=== PATIENT | male | born 1960 | race Caucasian/White ===

== ENCOUNTER → 2019-03-19 | Outpatient (CLI) | payer OTHER ==
[2019-03-20 01:42] LABS: T4, Free (Free Thyroxine) 1.1 ng/dL (0.80-1.80)
== END | disposition home or self-care (01) ==
LOC: LABWHC1 16:02
PROVIDERS: ATTEND Radiology Radiation Oncology
DX: C61 Malignant neoplasm of prostate (principal); R97.21 Rising PSA following treatment for malignant neoplasm of prostate; F17.210 Nicotine dependence, cigarettes, uncomplicated; Z92.3 Personal history of irradiation
CPT/HCPCS: 36415; 84153; 84439; 84443; 84481

== ENCOUNTER 2021-10-19 15:46 | Observation (INO) | payer OTHER ==
[2021-10-19 16:18] LABS: Hyaline Casts,Urine 56 /lpf (0-2); RBC,Urine >182 /hpf (0-5); WBC,Urine >182 /hpf (0-5)
[2021-10-19 16:20] LABS: Appearance,Urine Bloody (Clear); Color,Urine Dark Red
[2021-10-19 18:12] LABS: Basophils # (A) 0.1 k/uL (0-0.2); Basophils % (A) 1 %; Eosinophils # (A) 0.3 k/uL (0-0.7); Eosinophils % (A) 5 %; HGB 13.4 gm/dL (13.0-17.5); Lymphocytes # (A) 1.4 k/uL (1.0-4.8); Lymphocytes % (A) 23 %; MCH 38.9 pg (25.0-35.0); MCHC 32.7 g/dL (31.0-37.0); MCV 119.1 fL (80.0-100.0); Macrocytosis Marked; Mean Platelet Volume 8.2; Monocytes # (A) 0.3 k/uL (0-1.0); Monocytes % (A) 5 %; Neutrophils # (A) 3.9 k/uL (1.3-7.7); Neutrophils % (A) 65 %; Platelet Count 247 k/uL (150-450); RBC 3.44 m/uL (4.30-5.90); RDW 13.9 % (11.5-15.5)
[2021-10-19 18:19] LABS: Partial Thromboplastin Time 24.2 sec (22.0-30.0); Prothrombin Time 10.4 sec (9.0-12.0)
--- NOTE | 2021-10-19 18:20 | ED ---
General Adult HPI - General Chief complaint: Urogenital Stated complaint: Irregular labs-Sent by Time Seen by Provider: 10/19/21 17:24 Source: patient Mode of arrival: wheelchair Limitations: no limitations - History of Present Illness Initial comments: Patient is a 61-year-old male presenting with chief complaint of hematuria. Patient states that for the last 2 days he has been urinating pat red blood and experiencing a burning sensation with urination. Patient has history of prostate cancer states his prostate was removed several years ago. He denies any abdominal pain. He admits to lower back pain, which is worsening. Denies any history of kidney stones. No fever or chills. No chest pain or shortness of breath or palpitations. No nausea, vomiting, diarrhea, hematochezia, melena. - Related Data Home Medications Medication Instructions Recorded Confirmed Clopidogrel [Plavix] 75 mg PO DAILY 01/16/16 10/19/21 Famotidine 20 mg PO BID 05/24/16 10/19/21 Aspirin EC [Ecotrin Low Dose] 81 mg PO DAILY 10/19/21 10/19/21 Atorvastatin Calcium [Lipitor] 40 mg PO DAILY 10/19/21 10/19/21 Fluticasone Nasal [place] [Flonase 1 spray EA NOSTRIL BID 10/19/21 10/19/21 Nasal [place]] Furosemide [Lasix] 20 mg PO DAILY 10/19/21 10/19/21 Gabapentin [Neurontin] 600 mg PO TID 10/19/21 10/19/21 HYDROcodone/APAP 7.5-325MG [[place] 1 tab PO QID 10/19/21 10/19/21 7.5-325] Metoprolol Succinate [Toprol XL] 100 mg PO DAILY 10/19/21 10/19/21 Potassium Chloride [Potassium 10 meq PO DAILY 10/19/21 10/19/21 Chloride ER] Triamcinolone 0.1% Cream [Kenalog 1 applicatio TOPICAL BID PRN 10/19/21 10/19/21 0.1% Cream] cilostazoL [Pletal] 100 mg PO BID 10/19/21 10/19/21 glipiZIDE XL [Glucotrol Xl] 5 mg PO DAILY 10/19/21 10/19/21 Allergies Allergy/AdvReac Type Severity Reaction Status Date / Time No Known Allergies Allergy Verified 10/19/21 15:59 Review of Systems ROS Statement: Those systems with pertinent positive or pertinent negative responses have been documented in the HPI. ROS Other: All systems not noted in ROS Statement are negative. Past Medical History Past Medical History: Coronary Artery Disease (CAD), Myocardial Infarction ([place]), Seizure Disorder History of Any Multi-Drug Resistant Organisms: None Reported Past Surgical History: Heart Catheterization With Stent, Orthopedic Surgery Additional Past Surgical History / Comment(s): Right hip surgery, stents in legs Past Psychological History: Depression Smoking Status: Current every day smoker Past Alcohol Use History: Daily Past Drug Use History: None Reported General Exam Limitations: no limitations General appearance: alert, in no apparent distress Head exam: Present: atraumatic, normocephalic, normal inspection Eye exam: Present: normal appearance, EOMI. Absent: scleral icterus Neck exam: Present: normal inspection Respiratory exam: Present: normal lung sounds bilaterally. Absent: respiratory distress, wheezes, rales, rhonchi, stridor Cardiovascular Exam: Present: regular rate, normal rhythm, normal heart sounds. Absent: systolic murmur, diastolic murmur, rubs, gallop, clicks GI/Abdominal exam: Present: soft, normal bowel sounds. Absent: distended, ten derness, guarding, rebound, rigid Back exam: Present: normal inspection. Absent: CVA tenderness (R), CVA tenderness (L) Neurological exam: Present: alert, oriented X3, CN II-XII intact Psychiatric exam: Present: normal affect, normal mood Skin exam: Present: warm, dry, intact, normal color. Absent: rash Course Vital Signs 10/19/21 10/19/21 10/19/21 16:00 18:04 19:10 Temperature 98.8 F Pulse Rate 99 94 83 Respiratory 18 18 20 Rate Blood Pressure 98/66 114/72 99/62 O2 Sat by Pulse 94 L 94 L 95 Oximetry 10/19/21 20:18 Temperature Pulse Rate 78 Respiratory 20 Rate Blood Pressure 134/98 O2 Sat by Pulse 98 Oximetry Medical Decision Making - Medical Decision Making Patient is a 61-year-old male presenting with chief complaint of hematuria. Symptoms have been present for the last 2 days. Patient admits to low back pain. Denies any abdominal pain, nausea, vomiting. On exam normal bowel sounds in all 4 quadrants, no abdominal tenderness or CVA tenderness. Lab work shows no leukocytosis. Urine is positive for >182 urine RBC and WBC and Hyaline casts. CT of the abdomen and pelvis without contrast shows a partially obstructing left distal ureter 6 mm calculus. Additional bilateral nonobstructing renal calculi. Minimal hydroureteronephrosis. During his stay patient states that his pain has been increasing. Patient is given IV Toradol, 1 dose Flomax, IV fluids. I spoke with Dr. Brower who agreed to admit the patient for symptomatic control. I obtained a KUB x-ray per his request. Patient was given one dose of Rocephin in the event that his elevated urine WBCs are due to a UTI, urine is sent for culture and proper urine chemistry cannot be performed due to the high blood content of the urine. I informed the patient of the findings in this plan, he conveyed verbal understanding and agreed to the plan. - Lab Data Result diagrams: 10/19/21 17:57 10/19/21 17:57 Lab Results 10/19/21 10/19/21 10/19/21 Range/Units 16:04 17:57 17:57 WBC 6.0 (3.8-10.6) k/uL RBC 3.44 L (4.30-5.90) m/uL Hgb 13.4 (13.0-17.5) gm/dL Hct 41.0 (39.0-53.0) % MCV 119.1 H (80.0-100.0) fL MCH 38.9 H (25.0-35.0) pg MCHC 32.7 (31.0-37.0) g/dL RDW 13.9 (11.5-15.5) % Plt Count 247 (150-450) k/uL MPV 8.2 Neutrophils % 65 % Lymphocytes % 23 % Monocytes % 5 % Eosinophils % 5 % Basophils % 1 % Neutrophils # 3.9 (1.3-7.7) k/uL Lymphocytes # 1.4 (1.0-4.8) k/uL Monocytes # 0.3 (0-1.0) k/uL Eosinophils # 0.3 (0-0.7) k/uL Basophils # 0.1 (0-0.2) k/uL Manual Slide Review Performed Polychromasia Present Macrocytosis Marked A Spherocytes Present PT (9.0-12.0) sec INR (<1.2) APTT (22.0-30.0) sec Sodium 140 (137-145) mmol/L Potassium 4.0 (3.5-5.1) mmol/L Chloride 105 (98-107) mmol/L Carbon Dioxide 28 (22-30) mmol/L Anion Gap 7 mmol/L BUN 11 (9-20) mg/dL Creatinine 1.00 (0.66-1.25) mg/dL Est GFR (CKD-EPI)AfAm >90 (>60 ml/min/1.73 sqM) Est GFR (CKD-EPI)NonAf 82 (>60 ml/min/1.73 sqM) Glucose 109 H (74-99) mg/dL Plasma Lactic Acid Joselito (0.7-2.0) mmol/L Calcium 9.0 (8.4-10.2) mg/dL Total Bilirubin 0.6 (0.2-1.3) mg/dL AST 33 (17-59) U/L ALT 28 (4-49) U/L Alkaline Phosphatase 67 (38-126) U/L Total Protein 7.1 (6.3-8.2) g/dL Albumin 3.9 (3.5-5.0) g/dL Amylase 52 (30-110) U/L Lipase 88 (23-300) U/L Urine Color Dark Red Urine Appearance Bloody (Clear) Urine RBC >182 H (0-5) /hpf Urine WBC >182 H (0-5) /hpf Hyaline Casts 56 H (0-2) /lpf 10/19/21 10/19/21 Range/Units 17:57 17:57 WBC (3.8-10.6) k/uL RBC (4.30-5.90) m/uL Hgb (13.0-17.5) gm/dL Hct (39.0-53.0) % MCV (80.0-100.0) fL MCH (25.0-35.0) pg MCHC (31.0-37.0) g/dL RDW (11.5-15.5) % Plt Count (150-450) k/uL MPV Neutrophils % % Lymphocytes % % Monocytes % % Eosinophils % % Basophils % % Neutrophils # (1.3-7.7) k/uL Lymphocytes # (1.0-4.8) k/uL Monocytes # (0-1.0) k/uL Eosinophils # (0-0.7) k/uL Basophils # (0-0.2) k/uL Manual Slide Review Polychromasia Macrocytosis Spherocytes PT 10.4 (9.0-12.0) sec INR 1.0 (<1.2) APTT 24.2 (22.0-30.0) sec Sodium (137-145) mmol/L Potassium (3.5-5.1) mmol/L Chloride (98-107) mmol/L Carbon Dioxide (22-30) mmol/L Anion Gap mmol/L BUN (9-20) mg/dL Creatinine (0.66-1.25) mg/dL Est GFR (CKD-EPI)AfAm (>60 ml/min/1.73 sqM) Est GFR (CKD-EPI)NonAf (>60 ml/min/1.73 sqM) Glucose (74-99) mg/dL Plasma Lactic Acid Joselito 1.0 (0.7-2.0) mmol/L Calcium (8.4-10.2) mg/dL Total Bilirubin (0.2-1.3) mg/dL AST (17-59) U/L ALT (4-49) U/L Alkaline Phosphatase (38-126) U/L Total Protein (6.3-8.2) g/dL Albumin (3.5-5.0) g/dL Amylase (30-110) U/L Lipase (23-300) U/L Urine Color Urine Appearance (Clear) Urine RBC (0-5) /hpf Urine WBC (0-5) /hpf Hyaline Casts (0-2) /lpf Disposition Clinical Impression: Nephrolithiasis Disposition: ADMITTED IP TO THIS [facility] Condition: Good Time of Disposition: 20:03 Decision to Admit Reason: Admit from EC Decision Date: 10/19/21 Decision Time: 20:03
[2021-10-19 18:34] LABS: Polychromasia Present; Spherocytes Present
[2021-10-19 18:45] LABS: ALT 28 U/L (4-49); AST 33 U/L (17-59); African American GFR (CKD) >90 (>60 ml/min/1.73 sqM); Albumin 3.9 g/dL (3.5-5.0); Alkaline Phosphatase 67 U/L (38-126); Amylase 52 U/L (30-110); Anion Gap 7 mmol/L; Blood Urea Nitrogen 11 mg/dL (9-20); Carbon Dioxide 28 mmol/L (22-30); Chloride 105 mmol/L (98-107); Glucose 109 mg/dL (74-99); Lipase 88 U/L (23-300); Non-African American GFR(CKD) 82 (>60 ml/min/1.73 sqM); Sodium 140 mmol/L (137-145); Total Bilirubin 0.6 mg/dL (0.2-1.3); Total Protein 7.1 g/dL (6.3-8.2)
--- NOTE | 2021-10-19 19:19 | CT ---
EXAMINATION TYPE: CT abdomen pelvis wo con CT DLP: 1124.4 mGycm, Automated exposure control for dose reduction was used. DATE OF EXAM: 10/19/2021 6:43 PM COMPARISON: CT abdomen chest pelvis most recent from 05/24/2016. CLINICAL INDICATION:Male, 61 years old with history of Hematuria; Lower abdominal pain/hematuria TECHNIQUE: Standard CT of the abdomen and pelvis without IV or oral contrast. Lack of IV or oral co ntrast limits evaluation of solid and hollow organ viscera. Coronal and sagittal reformats were perfo rmed. FINDINGS: LOWER CHEST: Unremarkable ABDOMEN LIVER: Unremarkable GALLBLADDER AND BILE DUCTS: Unremarkable. PANCREAS: Unremarkable. SPLEEN: Unremarkable. ADRENAL GLANDS: Unremarkable. KIDNEYS AND URETERS: Partially obstructing left renal calculus at the distal left ureter measuring up to 6 mm with minimal hydroureteronephrosis. Additional calculi bilaterally which are nonobstructing measuring up to 10 mm on the right and 9mm on the left. No evidence of right hydronephrosis. PELVIS BLADDER: Unremarkable REPRODUCTIVE: Unremarkable. ABDOMEN & PELVIS STOMACH AND BOWEL: Stomach and duodenum are unremarkable. Scattered diverticula are noted throughout the colon. No evidence of bowel obstruction. PERITONEUM: No evidence of pneumoperitoneum or free fluid. VASCULATURE: No evidence of aortic aneurysm. Atherosclerosis of the arterial vasculature. Right commo n iliac artery stent in place. MUSCULOSKELETAL: No acute osseous abnormalities. Right hip arthroplasty with hardware intact. No evid ence of periprosthetic loosening or fracture. LYMPH NODES: No gross evidence for lymphadenopathy. SOFT TISSUE/ABDOMINAL WALL: Bilateral fat filled inguinal hernia. IMPRESSION: 1. Partially obstructing left distal ureter 6 mm calculus. Additional bilateral nonobstructing renal calculi. 2. Colonic diverticulosis. 3. Bilateral fat filled inguinal hernias.
[2021-10-19] MEDS ORDERED: TAMSULOSIN 0.4 MG CAP.ER.24H PO STA (19:28)
[2021-10-19] MEDS ORDERED: KETOROLAC 15 MG/ML 1 ML VIAL IVP STA (19:33)
[2021-10-19] MEDS ORDERED: SODIUM CHLORIDE 0.9% 1,000 ML IV ONE (19:38)
[2021-10-19] MEDS ORDERED: cefTRIAXone IN SWFI 1,000 MG/10 ML SYRINGE IVP STA (19:45)
[2021-10-19] MEDS ORDERED: NALOXONE 0.4 MG/ML 1 ML VIAL IV PRN (19:50)
--- NOTE | 2021-10-19 20:14 | XR ---
EXAMINATION TYPE: XR KUB DATE OF EXAM: 10/19/2021 8:07 PM INDICATION: Patient age:Male; 61 years old; Reason for study: nephrolithiasis, requested by urology;. COMPARISON: Same date CT abdomen pelvis. TECHNIQUE: One radiographic view of the abdomen was obtained. FINDINGS: Multiple bilateral renal calculi which are better characterized on CT abdomen pelvis from t he same day. The bowel gas pattern is nonspecific without dilated loops of small or large bowel.. Th e osseous structures are intact. Multiple calcifications project over the kidneys. Fecal material an d gas are demonstrated throughout the colon and rectum. IMPRESSION: Bilateral renal calculi please see dedicated CT on the same day for additional findings regarding par tially obstructing left distal ureter calculus.
[2021-10-20] MEDS: KETOROLAC 15 MG/ML 1 ML VIAL IVP PRN ×2 (01:37→07:09)
[2021-10-20] MEDS: SODIUM CHLORIDE 0.9% 1,000 ML IV SCH ×2 (02:15→11:19)
--- NOTE | 2021-10-20 08:52 | P.GSHP ---
History of Present Illness H&P Date: 10/20/21 Chief Complaint: Hematuria, low back pain The patient is a 61-year-old white male with no prior history of urolithiasis. He now presents with a 2 day history of gross hematuria associated with low back pain. CT scan has shown a 6 mm left distal ureteral calculus resulting in mild left hydronephrosis. He is also noted to have multiple bilateral renal calculi, 10-20 in each kidney, measuring up to 1 cm. - Constitutional Constitutional: Denies chills, Denies fever - Gastrointestinal Gastrointestinal: Denies nausea, Denies vomiting - Genitourinary (Male) Genitourinary: Reports dysuria, Reports hematuria, Reports kidney stones Past Medical History Past Medical History: Coronary Artery Disease (CAD), Myocardial Infarction ([place]), Seizure Disorder Last Myocardial Infarction Date:: unknown History of Any Multi-Drug Resistant Organisms: None Reported Past Surgical History: Heart Catheterization With Stent, Orthopedic Surgery Additional Past Surgical History / Comment(s): Right hip surgery, stents in legs Past Anesthesia/Blood Transfusion Reactions: No Reported Reaction Date of Last Stent Placement:: unknown Past Psychological History: Depression Smoking Status: Current every day smoker Past Alcohol Use History: Daily Past Drug Use History: None Reported Medications and Allergies Home Medications Medication Instructions Recorded Confirmed Type Clopidogrel [Plavix] 75 mg PO DAILY 01/16/16 10/19/21 History Famotidine 20 mg PO BID 05/24/16 10/19/21 History Aspirin EC [Ecotrin Low Dose] 81 mg PO DAILY 10/19/21 10/19/21 History Atorvastatin Calcium [Lipitor] 40 mg PO DAILY 10/19/21 10/19/21 History Fluticasone Nasal [place] [Flonase 1 spray EA NOSTRIL BID 10/19/21 10/19/21 History Nasal [place]] Furosemide [Lasix] 20 mg PO DAILY 10/19/21 10/19/21 History Gabapentin [Neurontin] 600 mg PO TID 10/19/21 10/19/21 History HYDROcodone/APAP 7.5-325MG [[place] 1 tab PO QID 10/19/21 10/19/21 History 7.5-325] Metoprolol Succinate [Toprol XL] 100 mg PO DAILY 10/19/21 10/19/21 History Potassium Chloride [Potassium 10 meq PO DAILY 10/19/21 10/19/21 History Chloride ER] Triamcinolone 0.1% Cream [Kenalog 1 applicatio TOPICAL BID PRN 10/19/21 10/19/21 History 0.1% Cream] cilostazoL [Pletal] 100 mg PO BID 10/19/21 10/19/21 History glipiZIDE XL [Glucotrol Xl] 5 mg PO DAILY 10/19/21 10/19/21 History Allergies Allergy/AdvReac Type Severity Reaction Status Date / Time No Known Allergies Allergy Verified 10/19/21 15:59 Surgical - Exam Vital Signs Temp Pulse Resp BP Pulse Ox 98.8 F 99 18 98/66 94 L 10/19/21 16:00 10/19/21 16:00 10/19/21 16:00 10/19/21 16:00 10/19/21 16:00 - General well developed, well nourished, no distress - Neck no masses, trachea midline - Respiratory normal respiratory effort - Abdomen Soft, non-distended, no mass or hernia. Mild left lower quadrant tenderness, no guarding or rebound. - Genitourinary normal penis with no external lesions, testicles non-tender - Psychiatric oriented to time, oriented to person, oriented to place, speech is normal, memory intact Results - Labs 10/19/21 17:57 10/19/21 17:57 Abnormal Lab Results - Last 24 Hours (Table) 10/19/21 10/19/21 10/19/21 Range/Units 16:04 17:57 17:57 RBC 3.44 L (4.30-5.90) m/uL MCV 119.1 H (80.0-100.0) fL MCH 38.9 H (25.0-35.0) pg Macrocytosis Marked A Glucose 109 H (74-99) mg/dL Urine RBC >182 H (0-5) /hpf Urine WBC >182 H (0-5) /hpf Hyaline Casts 56 H (0-2) /lpf Microbiology - Last 24 Hours (Table) 10/19/21 16:04 Urine Culture - Preliminary Urine,Voided Diabetes panel 10/19/21 Range/Units 17:57 Sodium 140 (137-145) mmol/L Potassium 4.0 (3.5-5.1) mmol/L Chloride 105 (98-107) mmol/L Carbon Dioxide 28 (22-30) mmol/L BUN 11 (9-20) mg/dL Creatinine 1.00 (0.66-1.25) mg/dL Glucose 109 H (74-99) mg/dL Calcium 9.0 (8.4-10.2) mg/dL AST 33 (17-59) U/L ALT 28 (4-49) U/L Alkaline Phosphatase 67 (38-126) U/L Total Protein 7.1 (6.3-8.2) g/dL Albumin 3.9 (3.5-5.0) g/dL Calcium panel 10/19/21 Range/Units 17:57 Calcium 9.0 (8.4-10.2) mg/dL Albumin 3.9 (3.5-5.0) g/dL Pituitary panel 10/19/21 Range/Units 17:57 Sodium 140 (137-145) mmol/L Potassium 4.0 (3.5-5.1) mmol/L Chloride 105 (98-107) mmol/L Carbon Dioxide 28 (22-30) mmol/L BUN 11 (9-20) mg/dL Creatinine 1.00 (0.66-1.25) mg/dL Glucose 109 H (74-99) mg/dL Calcium 9.0 (8.4-10.2) mg/dL Adrenal panel 10/19/21 Range/Units 17:57 Sodium 140 (137-145) mmol/L Potassium 4.0 (3.5-5.1) mmol/L Chloride 105 (98-107) mmol/L Carbon Dioxide 28 (22-30) mmol/L BUN 11 (9-20) mg/dL Creatinine 1.00 (0.66-1.25) mg/dL Glucose 109 H (74-99) mg/dL Calcium 9.0 (8.4-10.2) mg/dL Total Bilirubin 0.6 (0.2-1.3) mg/dL AST 33 (17-59) U/L ALT 28 (4-49) U/L Alkaline Phosphatase 67 (38-126) U/L Total Protein 7.1 (6.3-8.2) g/dL Albumin 3.9 (3.5-5.0) g/dL - Imaging CT scan - abdomen: report reviewed, image reviewed Assessment and Plan (1) Calculus of kidney Current Visit: Yes Status: Acute Code(s): N20.0 - CALCULUS OF KIDNEY SNOMED Code(s): 74819499 (2) Calculus of ureter Current Visit: Yes Status: Acute Code(s): N20.1 - CALCULUS OF URETER SNOMED Code(s): 68614671 Plan: I had a lengthy discussion with the patient regarding his multiple kidney stones. He reports severe pain and desires surgical relief. We discussed ureteroscopic removal of his left distal ureteral calculus. He also desires removal of his left renal calculi. It has thus been decided that he will undergo cystoscopy with left ureteral stent insertion later today to relieve his ureteral obstruction. Arrangements will then be made for him to undergo cystoscopy, left ureteral stent removal, left ureteroscopy with Holmium laser lithotripsy and stone basketing to remove his left ureteral calculus and as many of the left renal calculi as possible in 2-4 weeks. He is aware that his hematuria may persist until this is completed. He is aware of potential risks, which include anesthesia, bleeding, infection, and ureteral injury. Time with Patient: Greater than 30
[2021-10-20] MEDS: HYDROmorphone 0.5 MG/0.5 ML SYRINGE IVP PRN ×3 (09:34→13:17)
[2021-10-20] MEDS ORDERED: METOPROLOL SUCCINATE (ER) 100 MG TAB.ER.24H PO SCH (09:45)
[2021-10-20] MEDS ORDERED: FAMOTIDINE 20 MG TAB PO SCH (09:45)
[2021-10-20] MEDS ORDERED: ATORVASTATIN 40 MG TAB PO SCH (09:45)
[2021-10-20] MEDS ORDERED: NICOTINE 21MG/24HR PATCH TRANSDERM STA (10:30)
[2021-10-20] MEDS ORDERED: DEXTROSE 5%-0.9% NACL 1,000 ML IV SCH (11:15)
[2021-10-20] MEDS: GABAPENTIN 300 MG CAP PO SCH ×2 (11:18→18:21)
[2021-10-20 12:01] LABS: Glucose,Whole Blood 130 mg/dL (75-99)
[2021-10-20] MEDS: INSULIN ASPART (NovoLOG) 100 UNIT/ML VIAL SQ SCH ×2 (12:44→18:21)
--- NOTE | 2021-10-20 15:50 | P.CONS ---
History of Present Illness - Reason for Consult Consult date: 10/20/21 Medical management Requesting physician: Iván Brower - Chief Complaint Blood and urine - History of Present Illness This is a 61-year-old patient who follows with Dr. Clifton Melvin. Chronic stable medical conditions include CAD with stent in 2013, also doubt peripheral stent placed about 6 months ago. Other chronic stable medical conditions include seizure disorder, GERD, hypertension, hyperlipidemia, diabetes. Patient started noticing some blood in the urine about 2 days ago. Following day became much worse. Becoming more pat blood. He had some left lower juliana drant pain. Denies any fever or chills. No nausea vomiting. Computed tomography scan of the ER didn't show a left ureteral stone. Seen by Dr. Duron earlier today. Plan is to take out the stone/stent placement. I'll follow patient antiplatelet agent this morning. Review of systems: GEN.: Tired EYES: None HEENT: None NECK: None RESPIRATORY: None CARDIOVASCULAR: None GASTROINTESTINAL: None GENITOURINARY: As above MUSCULOSKELETAL: None LYMPHATICS: None HEMATOLOGICAL: None PSYCHIATRY: None NEUROLOGICAL: None Past medical history to include: CAD with stent in 2013, peripheral arterial disease with stent angioplasty 6 months ago, seizures, GERD, hypertension, hyperlipidemia, diabetes Social history: This is a girlfriend. Retired otr owner operator truck driver. Smokes half a pack a day for close to 23 years. No alcohol. Family history: Reviewed, noncontributory to presentation Physical examination: VITAL SIGNS: 98.2, 89, 18, 162/95, 96% room air GENERAL: BMI 29.9, declining bed, awake comfortable. EYES: Pupils equal. Conjunctiva normal. HEENT: External appearance of nose and ears normal, oral cavity grossly normal. NECK: JVD not raised; masses not palpable. HEART: First and second heart sounds are normal; no edema. LUNGS: Respiratory rate normal; clear to auscultation. ABDOMEN: Soft, nontender, liver spleen not palpable, no masses palpable. PSYCH: Alert and oriented x3; mood and affect normal. MUSCULOSKELETAL:No Clubbing/cyanosis;muscles-grossly intact NEUROLOGICAL: Cranial nerves grossly intact; no facial asymmetry, power and sensation grossly intact. LYMPHATICS: No lymph nodes palpable in the axilla and neck INVESTIGATIONS, reviewed in the clinical context: White count 6 hemoglobin 13.4 platelets onto 47 sodium 140 potassium 4 creatinine 1.0 UA positive for WBC RBC bloody dark red in color CT abdomen pelvis: Partially obstructing left distal ureter 6 mm calculus. Initial bilateral nonobstructing renal calculi. Colonic diverticulosis. Bilateral fat filled inguinal hernias. Assessment and plan: -Acute hematuria from left ureter stone [address] Duron later today will be extracting the stone. May need a stent. Hold off antiplatelet agents today. -CAD with a prior history of stent in 2013 Aspirin. Toprol-XL 100 mg daily -Essential hypertension Toprol-XL 100 mg a day -Hyperlipidemia Lipitor 40 mg a day -Diabetes mellitus type 2 on oral hypoglycemic Hold Glucotrol. Follow Accu-Cheks and sliding scale insulin. -GERD Pepcid 20 mg twice a day -Seizure disorder Neurontin 600 mg 3 times a day Resume all medications. Hold off antiplatelet agents still tomorrow. Follow Accu-Cheks and sliding scale. It was discussed with the patient. Questions answered. Medically stable to proceed with surgery. IV fluids. Thank you Dr. Brower Past Medical History Past Medical History: Coronary Artery Disease (CAD), Myocardial Infarction ([place]), Seizure Disorder Last Myocardial Infarction Date:: unknown History of Any Multi-Drug Resistant Organisms: None Reported Past Surgical History: Heart Catheterization With Stent, Orthopedic Surgery Additional Past Surgical History / Comment(s): Right hip surgery, stents in legs Past Anesthesia/Blood Transfusion Reactions: No Reported Reaction Date of Last Stent Placement:: unknown Past Psychological History: Depression Smoking Status: Current every day smoker Past Alcohol Use History: Daily Past Drug Use History: None Reported Medications and Allergies Home Medications Medication Instructions Recorded Confirmed Type Clopidogrel [Plavix] 75 mg PO DAILY 01/16/16 10/19/21 History Famotidine 20 mg PO BID 05/24/16 10/19/21 History Aspirin EC [Ecotrin Low Dose] 81 mg PO DAILY 10/19/21 10/19/21 History Atorvastatin Calcium [Lipitor] 40 mg PO DAILY 10/19/21 10/19/21 History Fluticasone Nasal [place] [Flonase 1 spray EA NOSTRIL BID 10/19/21 10/19/21 History Nasal [place]] Furosemide [Lasix] 20 mg PO DAILY 10/19/21 10/19/21 History Gabapentin [Neurontin] 600 mg PO TID 10/19/21 10/19/21 History HYDROcodone/APAP 7.5-325MG [[place] 1 tab PO QID 10/19/21 10/19/21 History 7.5-325] Metoprolol Succinate [Toprol XL] 100 mg PO DAILY 10/19/21 10/19/21 History Potassium Chloride [Potassium 10 meq PO DAILY 10/19/21 10/19/21 History Chloride ER] Triamcinolone 0.1% Cream [Kenalog 1 applicatio TOPICAL BID PRN 10/19/21 10/19/21 History 0.1% Cream] cilostazoL [Pletal] 100 mg PO BID 10/19/21 10/19/21 History glipiZIDE XL [Glucotrol Xl] 5 mg PO DAILY 10/19/21 10/19/21 History Allergies Allergy/AdvReac Type Severity Reaction Status Date / Time No Known Allergies Allergy Verified 10/19/21 15:59 Physical Exam Vitals: Vital Signs Temp Pulse Pulse Resp BP BP Pulse Ox 10/20/21 07:00 98.2 F 89 18 162/95 96 10/20/21 02:39 98.2 F 82 18 180/77 93 L 10/19/21 20:18 78 20 134/98 98 10/19/21 19:10 83 20 99/62 95 10/19/21 18:04 94 18 114/72 94 L 10/19/21 16:00 98.8 F 99 18 98/66 94 L Intake and Output 10/19/21 10/20/21 10/20/21 22:59 06:59 14:59 Other: Voiding Method Toilet # Voids 0 Weight 111.584 kg 111.584 kg Results CBC & Chem 7: 10/19/21 17:57 10/19/21 17:57 Labs: Abnormal Lab Results - Last 24 Hours (Table) 10/19/21 10/19/21 10/19/21 Range/Units 16:04 17:57 17:57 RBC 3.44 L (4.30-5.90) m/uL MCV 119.1 H (80.0-100.0) fL MCH 38.9 H (25.0-35.0) pg Macrocytosis Marked A Glucose 109 H (74-99) mg/dL Urine RBC >182 H (0-5) /hpf Urine WBC >182 H (0-5) /hpf Hyaline Casts 56 H (0-2) /lpf Microbiology - Last 24 Hours (Table) 10/19/21 16:04 Urine Culture - Preliminary Urine,Voided
[2021-10-20 15:53] VITALS: BP 174/91; PULSE 71; RESP 16; TEMP 97.6
[2021-10-20 16:05] LABS: Glucose,Whole Blood 122 mg/dL (75-99)
[2021-10-20] MEDS ORDERED: IV FLUID CONTINUATION 1,000 ML IV ONE (16:05)
--- NOTE | 2021-10-20 17:22 | P.DS ---
Providers Date of admission: 10/20/21 12:05 Expected date of discharge: 10/20/21 Attending physician: Iván Brower Consults: 10/19/21 19:51 Consult Physician Urgent Consulting Provider: Guille Hampton Consult Reason/Comments: medicine consult Do you want consulting provider notified?: Yes Primary care physician: Clifton Melvin - Discharge Diagnosis(es) (1) Calculus of kidney Current Visit: Yes Status: Acute (2) Calculus of ureter Current Visit: Yes Status: Acute Hospital Course: The patient was admitted and treated with IV hydration and parenteral analgesics. Due to the severity of his pain, he elected to undergo left uret eral stent insertion. However, he passed the calculus prior to surgery, and his symptoms essentially resolved. He will thus be discharged home. However, he does wish to make arrangements to undergo ureteroscopic removal of his renal calculi. Pertinent Studies: CT Scan 10/19/2021 revealed minimal left hydronephrosis due to a 6 mm left distal ureteral calculus. Multiple bilateral renal calculi measuring up to 1 cm were also seen. Patient Condition at Discharge: Good Plan - Discharge Summary New Discharge Prescriptions: No Action Clopidogrel [Plavix] 75 mg PO DAILY Famotidine 20 mg PO BID cilostazoL [Pletal] 100 mg PO BID HYDROcodone/APAP 7.5-325MG [[place] 7.5-325] 1 tab PO QID Potassium Chloride [Potassium Chloride ER] 10 meq PO DAILY Gabapentin [Neurontin] 600 mg PO TID Atorvastatin Calcium [Lipitor] 40 mg PO DAILY glipiZIDE XL [Glucotrol Xl] 5 mg PO DAILY Metoprolol Succinate [Toprol XL] 100 mg PO DAILY Triamcinolone 0.1% Cream [Kenalog 0.1% Cream] 1 applicatio TOPICAL BID PRN PRN Reason: Itching Furosemide [Lasix] 20 mg PO DAILY Aspirin EC [Ecotrin Low Dose] 81 mg PO DAILY Fluticasone Nasal [place] [Flonase Nasal [place]] 1 spray EA NOSTRIL BID Discharge Medication List Clopidogrel [Plavix] 75 mg PO DAILY 01/16/16 [History] Famotidine 20 mg PO BID 05/24/16 [History] Aspirin EC [Ecotrin Low Dose] 81 mg PO DAILY 10/19/21 [History] Atorvastatin Calcium [Lipitor] 40 mg PO DAILY 10/19/21 [History] Fluticasone Nasal [place] [Flonase Nasal [place]] 1 spray EA NOSTRIL BID 10/19/21 [History] Furosemide [Lasix] 20 mg PO DAILY 10/19/21 [History] Gabapentin [Neurontin] 600 mg PO TID 10/19/21 [History] HYDROcodone/APAP 7.5-325MG [[place] 7.5-325] 1 tab PO QID 10/19/21 [History] Metoprolol Succinate [Toprol XL] 100 mg PO DAILY 10/19/21 [History] Potassium Chloride [Potassium Chloride ER] 10 meq PO DAILY 10/19/21 [History] Triamcinolone 0.1% Cream [Kenalog 0.1% Cream] 1 applicatio TOPICAL BID PRN 10/19/21 [History] cilostazoL [Pletal] 100 mg PO BID 10/19/21 [History] glipiZIDE XL [Glucotrol Xl] 5 mg PO DAILY 10/19/21 [History] Follow up Appointment(s)/Referral(s): Clifton Melvin MD [Primary Care Provider] - 1-2 days Activity/Diet/Wound Care/Special Instructions: Diet as tolerated. Activity as tolerated. Patient will be contacted by Dr. Brower' office to arrange follow-up. Discharge Disposition: HOME SELF-CARE
[2021-10-21] MEDS ORDERED: ASPIRIN 81 MG PO SCH (09:00)
[2021-10-21] MEDS ORDERED: CLOPIDOGREL 75 MG TAB PO SCH (09:00)
== END 2021-10-20 18:55 | disposition home or self-care (01) ==
LOC: EC 15:46 → 6NMEDSUR 21:52 → INTOOBSV 10-20 12:05 → OBSVTOIN 10-20 12:05 → UNDODISIN 10-20 18:55
PROVIDERS: ADMIT Urology; ATTEND Urology
DX: N13.2 Hydronephrosis with renal and ureteral calculous obstruction (principal); E11.9 Type 2 diabetes mellitus without complications; E78.5 Hyperlipidemia, unspecified; F17.210 Nicotine dependence, cigarettes, uncomplicated; F32.A Depression, unspecified; R31.9 Hematuria, unspecified; G40.909 Epilepsy, unspecified, not intractable, without status epilepticus; I10 Essential (primary) hypertension; I25.10 Atherosclerotic heart disease of native coronary artery without angina pectoris; E66.9 Obesity, unspecified; Z68.29 Body mass index [BMI] 29.0-29.9, adult; I25.2 Old myocardial infarction; K40.20 Bilateral inguinal hernia, without obstruction or gangrene, not specified as recurrent; K21.9 Gastro-esophageal reflux disease without esophagitis; K57.30 Diverticulosis of large intestine without perforation or abscess without bleeding; Z79.02 Long term (current) use of antithrombotics/antiplatelets; Z79.82 Long term (current) use of aspirin; Z79.84 Long term (current) use of oral hypoglycemic drugs; Z79.899 Other long term (current) drug therapy; Z95.5 Presence of coronary angioplasty implant and graft; Z95.828 Presence of other vascular implants and grafts; Z28.310 Unvaccinated for COVID-19; Z98.890 Other specified postprocedural states
CPT/HCPCS: 99285; 96376 ×2; 96361 ×2; 96375 ×2; 96374; 36415; 80053; 82150; 83605; 83690; 85025; 85610; 85730; 81001; 82365; 87086; 74018; 74176; G0378 ×3; S4990; J0696; J1885 ×2; J1170

== ENCOUNTER → 2022-09-24 | Outpatient (CLI) | payer OTHER ==
--- NOTE | 2022-09-24 14:51 | XR ---
EXAMINATION TYPE: XR KUB DATE OF EXAM: 09/24/2022 HISTORY: Pain Comparison: 10/19/2021 Single KUB is submitted for interpretation. Findings: Right renal calculi: Multiple right-sided renal calculi noted measuring up to 6 mm. Right ureteral calculi: None Visualized. Left renal calculi: Multiple left renal calculi noted measuring up to 6.3 mm. Left ureteral calculi: None Visualized. Pelvic calcifications: Probable phleboliths within the pelvis. Vascular calcifications noted as well . Bowel gas pattern is unremarkable. No free air. No mass effects. IMPRESSION: 1. Bilateral nephrolithiasis
== END | disposition home or self-care (01) ==
LOC: RADXRMAIN 14:29
PROVIDERS: ATTEND Urology
DX: N20.0 Calculus of kidney (principal)
CPT/HCPCS: 74018